=== PATIENT | female | born 1940 | race Caucasian/White ===

== ENCOUNTER → 2022-03-09 | Outpatient (CLI) | payer MEDICARE ==
--- NOTE | 2022-03-09 10:57 | XR ---
EXAMINATION TYPE: XR Hip Complete RT DATE OF EXAM: 03/09/2022 COMPARISON: NONE HISTORY: Pain TECHNIQUE: 2 views submitted FINDINGS: A mild axial narrowing of the hip joint. There is calcification along the greater trochanter with spu r also noted. Vascular calcifications are seen with no acute fracture. No erosive changes and hypertr ophic changes lumbosacral junction. Mild diffuse osteopenia. IMPRESSION: 1. Arthropathy correlates with femoral acetabular impingement. 2. Greater trochanter spur with soft tissue calcification can be associated with trochanteric bursiti s. Correlate clinically.
== END | disposition home or self-care (01) ==
LOC: RADXRYALE 09:45
PROVIDERS: ATTEND Physician Assistant
DX: M25.551 Pain in right hip (principal)
CPT/HCPCS: 73502

== ENCOUNTER 2024-05-04 08:23 | Inpatient (IN) | payer MEDICARE ==
[2024-05-04 08:36] VITALS: TEMP 98.1
--- NOTE | 2024-05-04 08:52 | ED ---
General Adult HPI - General Chief complaint: Chest Pain Stated complaint: Afib Time Seen by Provider: 05/04/24 08:24 Source: patient, EMS, RN notes reviewed, old records reviewed Mode of arrival: EMS Limitations: no limitations - History of Present Illness Initial comments: 84-year-old female history of atrial fibrillation presenting with rapid heartbea t and chest pressure. Patient states her watch did indicate that she was in a rapid atrial fibrillation. Patient was previously on 240 mg of Cardizem and this was reduced due to blood pressure issues several months ago. Patient denies focal numbness or weakness but her son did indicate that she had some mild slurring of her speech. Patient indicates that this is due to dry mouth from her CPAP machine. She is uncertain when this would have started. - Related Data Allergies Allergy/AdvReac Type Severity Reaction Status Date / Time clindamycin Allergy Rash/Hives Verified 05/04/24 08:37 iron Allergy Rash/Hives Verified 05/04/24 08:37 Sulfa (Sulfonamide Allergy Rash/Hives Verified 05/04/24 08:37 Antibiotics) Review of Systems ROS Statement: Those systems with pertinent positive or pertinent negative responses have been documented in the HPI. ROS Other: All systems not noted in ROS Statement are negative. Past Medical History Past Medical History: Atrial Fibrillation, CVA/TIA History of Any Multi-Drug Resistant Organisms: None Reported Additional Past Surgical History / Comment(s): watchmen Past Psychological History: No Psychological Hx Reported Smoking Status: Former smoker Past Alcohol Use History: None Reported Past Drug Use History: None Reported General Exam Limitations: no limitations General appearance: alert, in no apparent distress Head exam: Present: atraumatic, normocephalic Eye exam: Present: normal appearance, PERRL ENT exam: Present: normal exam Neck exam: Present: normal inspection. Absent: tenderness, meningismus Respiratory exam: Present: normal lung sounds bilaterally. Absent: respiratory distress, wheezes Cardiovascular Exam: Present: tachycardia, irregular rhythm GI/Abdominal exam: Present: soft. Absent: distended, tenderness, guarding Neurological exam: Present: alert, oriented X3, motor sensory deficit (Very mild dysarthria no aphasia) Psychiatric exam: Present: normal affect, normal mood Skin exam: Present: warm, dry, intact Course Vital Signs 05/04/24 05/04/24 08:26 09:20 Temperature 98.1 F Pulse Rate 115 H 144 H Respiratory 20 20 Rate Blood Pressure 140/104 133/117 O2 Sat by Pulse 95 96 Oximetry Medical Decision Making - Medical Decision Making Was pt. sent in by a medical professional or institution (DORINDA Martinez, PSYCHOLOGY TEACHER, urgent care, hospital, or fpc...) When possible be specific @ -No Did you speak to anyone other than the patient for history (EMS, parent, family, police, friend...)? What history was obtained from this source @ -No Did you review nursing and triage notes (agree or disagree)? Why? @ -I reviewed and agree with nursing and triage notes Were old charts reviewed (outside hosp., previous admission, EMS record, old EKG, old radiological studies, urgent care reports/EKG's, fpc records)? Report findings @ -No old charts were reviewed Differential Palpitations Ventricular arrhythmias, atrial arrhythmias, myocardial infarction, anemia, th yrotoxicosis, electrolyte imbalance, hypokalemia, pulmonary embolism, pulmonary disease, drugs, alcohol, anxiety, stress.... This is not meant to be an all-inclusive list. EKG interpreted by me (3pts min.). @Atrial fibrillation with RVR rate of 142, QRS duration 132, QTc [address] segment elevation X-rays interpreted by me (1pt min.). @ -[Chest x-ray, negative for acute cardiopulmonary findings CT interpreted by me (1pt min.). @CT brain negative for intracranial hemorrhage or mass effect U/S interpreted by me (1pt. min.). @ -None done What testing was considered but not performed or refused? (CT, X-rays, U/S, labs)? Why? @ -None What meds were considered but not given or refused? Why? @ -None Did you discuss the management of the patient with other professionals (professionals i.e. DORINDA Martinez, PSYCHOLOGY TEACHER, lab, RT, psych nurse, director social welfare, sighter, teacher, bank compliance officer, case assembler)? Give summary @Case discussed with Dr. Greenfield, will admit Was smoking cessation discussed for >3mins.? @ -No Was critical care preformed (if so, how long)? @ -[Yes, 35 minutes Were there social determinants of health that impacted care today? How? (Homelessness, low income, unemployed, alcoholism, drug addiction, transportation, low edu. Level, literacy, decrease access to med. care, fpc, rehab)? @ -No Was there de-escalation of care discussed even if they declined (Discuss DNR or withdrawal of care, Hospice)? DNR status @ -No What co-morbidities impacted this encounter? (DM, HTN, Smoking, COPD, CAD, Cancer, CVA, ARF, Chemo, Hep., AIDS, mental health diagnosis, sleep apnea, morbid obesity)? @ -Atrial fibrillation Was patient admitted / discharged? Hospital course, mention meds given and route, prescriptions, significant lab abnormalities, going to OR and other pertinent info. @ -84-year-old female with palpitations, chest tightness, patient noted to be in atrial fibrillation with rapid ventricular response rate around 150. Patient started on IV Cardizem. She does have normal laboratory test including normal CBC, normal CMP, negative initial troponin. Chest x-ray is clear. I did perform head CT as there was some concern over mild slurred speech, onset unknown. The patient herself believes this is due to dry mouth from her CPAP. It does improve with oral hydration. Head CT is negative. Patient is anticoagulated at baseline. Admitted for atrial fibrillation with RVR. Undiagnosed new problem with uncertain prognosis? @ -No Drug Therapy requiring intensive monitoring for toxicity (Heparin, Nitro, Insulin, Cardizem)? @ -No Were any procedures done? @ -No Diagnosis/symptom? @ -Atrial fibrillation with RVR] Acute, or Chronic, or Acute on Chronic? @ -Acute Uncomplicated (without systemic symptoms) or Complicated (systemic symptoms)? @ -Default Side effects of treatment? @ -No Exacerbation, Progression, or Severe Exacerbation? @ -No Poses a threat to life or bodily function? How? (Chest pain, [place], [place], pneumonia, PE, COPD, DKA, ARF, appy, cholecystitis, CVA, Diverticulitis, Homicidal, Suicidal, threat to staff... and all critical care pts) @ -Yes, arrhythmia, ACS - Lab Data Result diagrams: 05/04/24 08:47 05/04/24 08:47 Lab Results 05/04/24 05/04/24 05/04/24 Range/Units 08:47 08:47 08:47 WBC 4.2 (3.8-10.6) k/uL RBC 4.82 (3.80-5.40) m/uL Hgb 15.2 (11.4-16.0) gm/dL Hct 45.3 (34.0-46.0) % MCV 93.9 (80.0-100.0) fL MCH 31.5 (25.0-35.0) pg MCHC 33.6 (31.0-37.0) g/dL RDW 13.9 (11.5-15.5) % Plt Count 141 L (150-450) k/uL MPV 8.3 Neutrophils % 64 % Lymphocytes % 24 % Monocytes % 6 % Eosinophils % 3 % Basophils % 1 % Neutrophils # 2.7 (1.3-7.7) k/uL Lymphocytes # 1.0 (1.0-4.8) k/uL Monocytes # 0.2 (0-1.0) k/uL Eosinophils # 0.1 (0-0.7) k/uL Basophils # 0.0 (0-0.2) k/uL PT 11.0 (10.0-12.5) sec INR 1.0 (<1.2) APTT 25.7 (22.0-30.0) sec Sodium 144 (137-145) mmol/L Potassium 4.0 (3.5-5.1) mmol/L Chloride 114 H (98-107) mmol/L Carbon Dioxide 21 L (22-30) mmol/L Anion Gap 9 mmol/L BUN 16 (7-17) mg/dL Creatinine 0.87 (0.52-1.04) mg/dL Est GFR (CKD-EPI)AfAm 72 (>60 ml/min/1.73 sqM) Est GFR (CKD-EPI)NonAf 62 (>60 ml/min/1.73 sqM) Glucose 102 H (74-99) mg/dL Calcium 9.5 (8.4-10.2) mg/dL Magnesium 1.9 (1.6-2.3) mg/dL Total Bilirubin 1.0 (0.2-1.3) mg/dL AST 29 (14-36) U/L ALT 20 (4-34) U/L Alkaline Phosphatase 81 (38-126) U/L Troponin I (0.000-0.034) ng/mL Total Protein 6.8 (6.3-8.2) g/dL Albumin 4.2 (3.5-5.0) g/dL Urine Color Urine Appearance (Clear) Urine pH (5.0-8.0) Ur Specific [place] (1.001-1.035) Urine Protein (Negative) Urine Glucose (UA) (Negative) Urine Ketones (Negative) Urine Blood (Negative) Urine Nitrite (Negative) Urine Bilirubin (Negative) Urine Urobilinogen (<2.0) mg/dL Ur Leukocyte Esterase (Negative) 05/04/24 05/04/24 Range/Units 08:47 08:47 WBC (3.8-10.6) k/uL RBC (3.80-5.40) m/uL Hgb (11.4-16.0) gm/dL Hct (34.0-46.0) % MCV (80.0-100.0) fL MCH (25.0-35.0) pg MCHC (31.0-37.0) g/dL RDW (11.5-15.5) % Plt Count (150-450) k/uL MPV Neutrophils % % Lymphocytes % % Monocytes % % Eosinophils % % Basophils % % Neutrophils # (1.3-7.7) k/uL Lymphocytes # (1.0-4.8) k/uL Monocytes # (0-1.0) k/uL Eosinophils # (0-0.7) k/uL Basophils # (0-0.2) k/uL PT (10.0-12.5) sec INR (<1.2) APTT (22.0-30.0) sec Sodium (137-145) mmol/L Potassium (3.5-5.1) mmol/L Chloride (98-107) mmol/L Carbon Dioxide (22-30) mmol/L Anion Gap mmol/L BUN (7-17) mg/dL Creatinine (0.52-1.04) mg/dL Est GFR (CKD-EPI)AfAm (>60 ml/min/1.73 sqM) Est GFR (CKD-EPI)NonAf (>60 ml/min/1.73 sqM) Glucose (74-99) mg/dL Calcium (8.4-10.2) mg/dL Magnesium (1.6-2.3) mg/dL Total Bilirubin (0.2-1.3) mg/dL AST (14-36) U/L ALT (4-34) U/L Alkaline Phosphatase (38-126) U/L Troponin I <0.012 (0.000-0.034) ng/mL Total Protein (6.3-8.2) g/dL Albumin (3.5-5.0) g/dL Urine Color Colorless Urine Appearance CLR (Clear) Urine pH 6.5 (5.0-8.0) Ur Specific [place] 1.005 (1.001-1.035) Urine Protein Negative (Negative) Urine Glucose (UA) Negative (Negative) Urine Ketones Negative (Negative) Urine Blood Trace (Negative) Urine Nitrite Negative (Negative) Urine Bilirubin Negative (Negative) Urine Urobilinogen <2.0 (<2.0) mg/dL Ur Leukocyte Esterase Negative (Negative) Critical Care Time Critical Care Time: Yes Total Critical Care Time: 35 Disposition Clinical Impression: Atrial fibrillation with RVR Disposition: ADMITTED IP TO THIS HOSP Condition: Stable Is patient prescribed a controlled substance at d/c from ED?: No Referrals: Carmine Adrian DO [Primary Care Provider] - 1-2 days Time of Disposition: 09:40
[2024-05-04 09:01] LABS: Basophils % (A) 1 %; Eosinophils # (A) 0.1 k/uL (0-0.7); Eosinophils % (A) 3 %; HCT 45.3 % (34.0-46.0); HGB 15.2 gm/dL (11.4-16.0); Lymphocytes % (A) 24 %; MCH 31.5 pg (25.0-35.0); MCHC 33.6 g/dL (31.0-37.0); MCV 93.9 fL (80.0-100.0); Mean Platelet Volume 8.3; Monocytes # (A) 0.2 k/uL (0-1.0); Monocytes % (A) 6 %; Neutrophils # (A) 2.7 k/uL (1.3-7.7); Neutrophils % (A) 64 %; Platelet Count 141 k/uL (150-450); RBC 4.82 m/uL (3.80-5.40); RDW 13.9 % (11.5-15.5); WBC 4.2 k/uL (3.8-10.6)
[2024-05-04 09:07] LABS: Appearance,Urine CLR (Clear); Color,Urine Colorless; Glucose,Urine (UA) Negative (Negative); PH, Urine 6.5 (5.0-8.0); Protein,Urine Negative (Negative); Specific Gravity,Urine 1.005 (1.001-1.035)
[2024-05-04 09:08] LABS: Bilirubin,Urine Negative (Negative); Blood,Urine Trace (Negative); Ketones,Urine Negative (Negative); Leukocyte Esterase,Urine Negative (Negative); Nitrite,Urine Negative (Negative); Urobilinogen,Urine <2.0 mg/dL (<2.0)
[2024-05-04 09:09] LABS: Partial Thromboplastin Time 25.7 sec (22.0-30.0)
--- NOTE | 2024-05-04 09:11 | XR ---
EXAMINATION TYPE: XR chest 2V DATE OF EXAM: 05/04/2024 COMPARISON: NONE HISTORY: Shortness of breath TECHNIQUE: Frontal and lateral views of the chest are obtained. FINDINGS: Scattered senescent parenchymal changes noted. No evidence for infiltrate. No evidence for atelectasis. Heart size is stable. Pulmonary venous congestion without overt failure. Mediastinal structures are stable and grossly unremarkable. No evidence for hilar prominence. Degenerative changes dorsal spine. IMPRESSION: 1. No evidence for acute pulmonary disease. [facility], , 05/04/2024 9:09 AM
[2024-05-04 09:16] LABS: ALT 20 U/L (4-34); AST 29 U/L (14-36); African American GFR (CKD) 72 (>60 ml/min/1.73 sqM); Albumin 4.2 g/dL (3.5-5.0); Alkaline Phosphatase 81 U/L (38-126); Anion Gap 9 mmol/L; Blood Urea Nitrogen 16 mg/dL (7-17); Calcium 9.5 mg/dL (8.4-10.2); Carbon Dioxide 21 mmol/L (22-30); Chloride 114 mmol/L (98-107); Glucose 102 mg/dL (74-99); Magnesium 1.9 mg/dL (1.6-2.3); Non-African American GFR(CKD) 62 (>60 ml/min/1.73 sqM); Sodium 144 mmol/L (137-145); Total Protein 6.8 g/dL (6.3-8.2)
--- NOTE | 2024-05-04 09:19 | CT ---
EXAMINATION TYPE: CT brain wo con DATE OF EXAM: 05/04/2024 COMPARISON: None HISTORY: Slurred speech, afib CT DLP: 1156.[address] of the brain was performed. The ventricles, basal cisterns and sulci overlying the cerebral convexities demonstrate mild enlargem ent. There is no evidence for intracranial hemorrhage or sulcal effacement. There is decreased attenuation about the periventricular white matter and deep white matter of both c erebral hemispheres, compatible with chronic small vessel ischemia. Differential diagnosis does inclu de demyelination. No mass effects are seen.No midline shift. Osseous calvarium is intact. If symptoms persist consider MRI. IMPRESSION: 1. Age related atrophic and chronic small vessel ischemic change without acute intracranial process s een at this time. [facility], , 05/04/2024 9:17 AM
[2024-05-04] MEDS: DILTIAZEM 125 MG in SODIUM CHLORIDE 0.9% 100 ML IV SCH (09:24)
[2024-05-04] MEDS: DILTIAZEM DRIP BOLUS FROM BAG 1 MG SOLN IV ONE (09:24)
[2024-05-04] MEDS ORDERED: NALOXONE 0.4 MG/ML 1 ML VIAL IV PRN (09:36)
[2024-05-04] MEDS ORDERED: ACETAMINOPHEN TAB 325 MG TAB PO PRN (09:36)
[2024-05-04] MEDS: SODIUM CHLORIDE 0.9% 1,000 ML IV SCH (10:17)
--- NOTE | 2024-05-04 17:32 | P.HPIM ---
History of Present Illness H&P Date: 05/04/24 84 year old F with PMH of CVA, AFib, HTN, Scleroderma presents to the ED. She reports waking up this morning and experienced chest tightness. She noted her HR to be as high as 150 which prompted her to come to the ED. She reports recently admitted at [facility] from 01/17-01/21 for similar complaints. She underwent cardioversion at that time and discharged on Cardizem. Her PCP noted her BP to be low and cut the dose in half (120 mg PO QD). In the ED she underwent extensive evaluation. BP 140/104, HR 115, T 98.1F, RR 20, 95% on RA. CBC, Coag panel, CMP significant for Plt 141, Cl 114, bicarb 21, glu 102. Mag 1.9. TSH 2.24. Trop < 0.012, 0.029, 0.067. UA negative. EKG A-Fib with RVR. CXR and brain CT negative. Patient is started on Cardizem drip and admitted for further workup and management. General: non toxic, no distress, appears at stated age Derm: warm, dry Head: atraumatic, normocephalic, symmetric Eyes: EOMI, no lid lag, anicteric sclera Mouth: no lip lesion, mucus membranes moist Cardiovascular: S1S2 irreg, no murmur Lungs: Clear to auscultation bilateral, no rhonchi, no rales, no accessory muscle use Ext: no gross muscle atrophy, no edema, no contractures Neuro: no focal neuro deficits Psych: Alert, oriented, appropriate affect Based on my assessment of this patient, this patient meets a high complexity level of care. Atrial fibrillation with RVR: Cardizem at 5 mg/hr and titrate. Restart Eliquis 5 mg PO BID. Start Metoprolol 25 mg PO BID. Telemetry monitoring. Echo ordered. Cardiology consulted. Elevated Troponin likely Type II NSTEMI: Trend Troponin to rule out ACS. Echo as above. ASA 81 mg PO QD. Lipitor 40 mg PO QHS. Metoprolol as above. History of CVA: ASA and Lipitor as above. HTN: Losartan 50 mg PO QD. Metoprolol as above. Scleroderma: Plaquenil 200 mg PO QD. CODE STATUS: NO CODE but OK with intubation and cardioversion. DVT Prophylaxis: Eliquis GI Prophylaxis: Designated medical POA if patient is not able to make medical decisions for themselves: I have reviewed the following residential property consultant notes: ED note. I have reviewed the results of the following tests: As above. I have ordered the following tests: As above. I have discussed the care of this patient with the following independent historian: Daughter I have independently interpreted the following test below: Past Medical History Past Medical History: Atrial Fibrillation, CVA/TIA History of Any Multi-Drug Resistant Organisms: None Reported Additional Past Surgical History / Comment(s): watchmen Past Psychological History: No Psychological Hx Reported Smoking Status: Former smoker Past Alcohol Use History: None Reported Past Drug Use History: None Reported Medications and Allergies Home Medications Medication Instructions Recorded Confirmed Type Apixaban [Eliquis] 5 mg PO BID 05/04/24 05/04/24 History Aspirin EC [Ecotrin Low Dose] 81 mg PO DAILY 05/04/24 05/04/24 History Atorvastatin [Lipitor] 40 mg PO HS 05/04/24 05/04/24 History Hydroxychloroquine Sulfate 200 mg PO DAILY 05/04/24 05/04/24 History [Plaquenil] Losartan [Cozaar] 50 mg PO DAILY 05/04/24 05/04/24 History dilTIAZem HCL [Cardizem CD] 120 mg PO HS 05/04/24 05/04/24 History Allergies Allergy/AdvReac Type Severity Reaction Status Date / Time clindamycin Allergy Rash/Hives Verified 05/04/24 10:14 iron Allergy Rash/Hives Verified 05/04/24 10:14 Sulfa (Sulfonamide Allergy Rash/Hives Verified 05/04/24 10:14 Antibiotics) Physical Exam Vitals: Vital Signs Temp Pulse Resp BP Pulse Ox 05/04/24 14:00 118 H 16 132/81 97 05/04/24 13:00 116 H 18 138/78 96 05/04/24 12:00 135 H 20 149/97 96 05/04/24 10:33 144 H 20 130/87 94 L 05/04/24 09:20 144 H 20 133/117 96 05/04/24 08:26 98.1 F 115 H 20 140/104 95 Intake and Output 05/04/24 05/04/24 05/04/24 06:59 14:59 22:59 Output Total 820 Balance -820 Output: Urine 820 Other: Weight 95.254 kg Results CBC & Chem 7: 05/04/24 08:47 05/04/24 08:47 Labs: Abnormal Lab Results - Last 24 Hours (Table) 05/04/24 05/04/24 05/04/24 Range/Units 08:47 08:47 14:39 Plt Count 141 L (150-450) k/uL Chloride 114 H (98-107) mmol/L Carbon Dioxide 21 L (22-30) mmol/L Glucose 102 H (74-99) mg/dL Troponin I 0.067 H* (0.000-0.034) ng/mL
[2024-05-04] MEDS: APIXABAN 5 MG TAB PO SCH (20:19)
[2024-05-04] MEDS: ATORVASTATIN 40 MG TAB PO SCH (20:19)
[2024-05-04] MEDS: METOPROLOL TARTRATE 25 MG TAB PO SCH (20:19)
[2024-05-04] MEDS ORDERED: DILTIAZEM CD 120 MG CAP.ER.24H PO SCH (21:00)
[2024-05-04] MEDS ORDERED: METOPROLOL TARTRATE 25 MG TAB PO SCH (21:00)
[2024-05-05] MEDS: HYDROXYCHLOROQUINE SULFATE 200 MG TAB PO SCH (08:52)
[2024-05-05] MEDS: ASPIRIN 81 MG PO SCH (08:53)
[2024-05-05] MEDS: LOSARTAN 50 MG TAB PO SCH (08:57)
[2024-05-05] MEDS: DILTIAZEM CD 120 MG CAP.ER.24H PO SCH (08:57)
[2024-05-05 09:00] VITALS: RESP 18
--- NOTE | 2024-05-05 10:31 | CA ---
Transthoracic Echo Report Name: Marsha Wu Age: 84 Gender: F : 1940 Exam Date: 05/05/2024 08:10 Exam Location: [place] [facility] Ht (in): 65 Wt (lb): 210 Ordering Physician: Wily Miles MD Attending/Referring Phys: Fur Designer Rajwinder Rene RDCS Procedure CPT: Indications: afib Cardiac Hx: Technical Quality: Fair Contrast 1: Total Dose (mL): Contrast 2: Total Dose (mL): MEASUREMENTS (Male / Female) Normal Values 2D ECHO LV Diastolic Diameter PLAX 4.5 cm 4.2 - 5.9 / 3.9 - 5.3 cm LV Systolic Diameter PLAX 3.3 cm IVS Diastolic Thickness 1.6 cm 0.6 - 1.0 / 0.6 - 0.9 cm LVPW Diastolic Thickness 1.6 cm 0.6 - 1.0 / 0.6 - 0.9 cm LV Relative Wall Thickness 0.7 RV Internal Dim ED PLAX 3.2 cm LVOT Diameter 2.0 cm LA Volume 129.2 cm??? 18 - 58 / 22 - 52 cm??? LA Volume Index 60.7 cm???/m??? 16 - 28 cm???/m??? M-MODE Aortic Root Diameter MM 2.9 cm LA Systolic Diameter MM 3.9 cm LA Ao Ratio MM 1.3 AV Cusp Separation MM 1.8 cm DOPPLER AV Peak Velocity 150.3 cm/s AV Peak Gradient 9.0 mmHg AV Mean Velocity 107.7 cm/s AV Mean Gradient 5.1 mmHg AV Velocity Time Integral 32.8 cm LVOT Peak Velocity 105.4 cm/s LVOT Peak Gradient 4.4 mmHg LVOT Velocity Time Integral 27.4 cm LVOT Stroke Volume 90.0 cm??? LVOT Stroke Volume Index 44.6 ml/m??? LVOT Cardiac Index 2748.0 cm???/min???m??? AV Area Cont Eq vti 2.7 cm??? AV Area Cont Eq pk 2.3 cm??? MV Area PHT 3.0 cm??? Mitral E Point Velocity 127.7 cm/s Mitral A Point Velocity 100.0 cm/s Mitral E to A Ratio 1.3 MV Deceleration Time 250.9 ms MV E' Velocity 5.8 cm/s Mitral E to MV E' Ratio 22.1 TR Peak Velocity 273.7 cm/s TR Peak Gradient 30.0 mmHg Right Ventricular Systolic Press 34.7 mmHg FINDINGS Left Ventricle Moderately increased left ventricular wall thickness. Left ventricular cavity size normal. Normal left ventricular systolic function with no obvious regional wall motion abnormalities. Left ventricular ejection fraction is estimated at 55-60 %. Grade 2 diastolic dysfunction. Right Ventricle Normal right ventricular size and function. Mild pulmonary hypertension. Right Atrium Normal right atrial size. Left Atrium Severely increased left atrial volume. Moderately increased left atrial area. Mitral Valve Structurally normal mitral valve. Mitral valve thickened. Moderate mitral annular calcification. Mild to moderate mitral regurgitation. Aortic Valve Trileaflet aortic valve. No aortic valve stenosis or regurgitation. Aortic valve sclerosis. Tricuspid Valve Structurally normal tricuspid valve. Mild tricuspid regurgitation. Pulmonic Valve Structurally normal pulmonic valve. Trace pulmonic regurgitation. Pericardium No pericardial effusion. Aorta Normal size aortic root and proximal ascending aorta. CONCLUSIONS Normal LV size and systolic function. There is mild mitral annular calcification and aortic valve sclerosis without restriction. There is mild to moderate mitral regurgitation. Mild tricuspid regurgitation no pericardial effusion no significant pulmonary hypertension Previewed by: Dr. Franco Parks MD (Electronically Signed) Final Date: 05 May 2024 10:30
--- NOTE | 2024-05-05 10:43 | P.CRDCN ---
History of Present Illness Consult date: 05/05/24 Reason for Consult (text): A-fib with RVR History of present illness: This is an 84-year-old female with past medical history of CVA, atrial fi brillation status post Watchman procedure, remote history of tobacco use. We have been asked to evaluate the patient for A-fib with RVR. Patient follows with a particle board supervisor out of [place] at the [place] office. This is her second episode of atrial fibrillation. She states she had 1 episode in January and underwent cardioversion at that time. She was on Cardizem at 240 mg but this was too strong for her and she has been maintained on 120 mg as well as on Eliquis. It appears patient was not on a beta-gildardo because she has bradycardia. She states she did have Watchman procedure done in 2014 in [place] and there is a leak with this and she is on Eliquis. She has history of CVA x 2 in 2021. Patient states that she woke up yesterday morning with heaviness in her chest and her watch said that her heart rate was 150 mg. She states she had a heaviness in her chest but no chest pain. Patient was started on Cardizem drip which has been placed on hold because patient converted to sinus rhythm this morning. Discussed treatment options with the patient and she is not a candidate for Multaq, sotalol, amiodarone due to the use of Plaquenil which can cause QT prolongation. Patient is on Plaquenil for scleroderma which seems to be managing her symptoms well. Discussed the next option would be to continue her current medications, follow-up with her particle board supervisor and discuss ablation. Blood pressure 153/74, heart rate 72, pulse ox 90% on room air. Patient denies having any heaviness in her chest or palpitations at this time. EKG: Atrial fibrillation with ventricular rate of 142 bpm, #2 sinus rhythm T wave inversions in V2 through V4 Chest x-ray: No acute process CT brain: Age-related atrophy and chronic small vessel ischemic change without acute intracranial process. Laboratory studies: WBC 4.2, hemoglobin 15.2. Platelet count 141. Sodium 144, potassium 4, BUN 16 creatinine 0.87. Troponin negative x 2. Magnesium 1.9. TSH 2.24. Urinalysis negative for infection. Home cardiac medications: Eliquis 5 mg twice daily, aspirin 81 mg daily, atorvastatin 40 mg at bedtime, Cardizem CD 120 mg at bedtime, Plaquenil 200 mg daily, losartan 50 mg daily. Echocardiogram reveals normal LV size and systolic function, mild mitral annular calcification and aortic valve sclerosis without restriction. Mild to moderate mitral regurgitation. Mild tricuspid regurgitation. No pericardial effusion. No significant pulmonary hypertension. Review Of Systems: At the time of my exam: CONSTITUTIONAL: Denies fever or chills. HEENT: Denies blurred vision, vision changes, or eye pain. Denies hemoptysis CARDIOVASCULAR: Denies chest pain. Denies orthopnea. Denies PND. Denies palpitations RESPIRATORY: Denies shortness of breath. GASTROINTESTINAL: Denies abdominal pain. Denies nausea or vomiting. HEMATOLOGIC: Denies bleeding disorders. GENITOURINARY: Denies any blood in urine. SKIN: Denies puritis. Denies rash. Physical examination: Gen: This is an 84-year-old female in no acute distress VS: reviewed HEENT: Head is atraumatic, normocephalic. Pupils equal, round. Sclerae is anicteric. NECK: Supple. No JVD. LUNGS: Clear to auscultation. No wheezes or rhonchi. No intercostal retractions. HEART: Regular rate and rhythm. No murmur. ABDOMEN: Soft No tenderness. EXTREMITIES: No pedal edema. No calf tenderness. NEUROLOGICAL: Patient is awake, alert and oriented x3. Assessment: Paroxysmal atrial fibrillation with RVR, converted to sinus rhythm CVA x 2 Hypertension Hyperlipidemia History of Watchman procedure Scleroderma on Plaquenil Plan: Continue patient on her home cardiac medications Discontinue Cardizem drip, discontinue beta-gildardo Discontinue IV fluids Patient is cleared for discharge from cardiology May follow-up with her particle board supervisor in the next week. Thank you kindly for this consultation. Nurse practitioner note has been reviewed, I agree with documented findings and plan of care. Patient was seen and examined. Past Medical History Past Medical History: Atrial Fibrillation, CVA/TIA History of Any Multi-Drug Resistant Organisms: None Reported Additional Past Surgical History / Comment(s): watchmen Past Psychological History: No Psychological Hx Reported Smoking Status: Former smoker Past Alcohol Use History: None Reported Past Drug Use History: None Reported Medications and Allergies Home Medications Medication Instructions Recorded Confirmed Type Apixaban [Eliquis] 5 mg PO BID 05/04/24 05/04/24 History Aspirin EC [Ecotrin Low Dose] 81 mg PO DAILY 05/04/24 05/04/24 History Atorvastatin [Lipitor] 40 mg PO HS 05/04/24 05/04/24 History Hydroxychloroquine Sulfate 200 mg PO DAILY 05/04/24 05/04/24 History [Plaquenil] Losartan [Cozaar] 50 mg PO DAILY 05/04/24 05/04/24 History dilTIAZem HCL [Cardizem CD] 120 mg PO HS 05/04/24 05/04/24 History Allergies Allergy/AdvReac Type Severity Reaction Status Date / Time clindamycin Allergy Rash/Hives Verified 05/04/24 10:14 iron Allergy Rash/Hives Verified 05/04/24 10:14 Sulfa (Sulfonamide Allergy Rash/Hives Verified 05/04/24 10:14 Antibiotics) Physical Exam Vitals: Vital Signs Temp Pulse Resp BP Pulse Ox 05/04/24 12:00 135 H 20 149/97 96 05/04/24 10:33 144 H 20 130/87 94 L 05/04/24 09:20 144 H 20 133/117 96 05/04/24 08:26 98.1 F 115 H 20 140/104 95 Intake and Output 05/03/24 05/04/24 05/04/24 22:59 06:59 14:59 Output Total 820 Balance -820 Output: Urine 820 Other: Weight 95.254 kg Results 05/04/24 08:47 05/04/24 08:47 Cardiac Enzymes 05/04/24 05/04/24 05/04/24 Range/Units 08:47 08:47 11:14 AST 29 (14-36) U/L Troponin I <0.012 0.029 (0.000-0.034) ng/mL Coagulation 05/04/24 Range/Units 08:47 PT 11.0 (10.0-12.5) sec APTT 25.7 (22.0-30.0) sec CBC 05/04/24 Range/Units 08:47 WBC 4.2 (3.8-10.6) k/uL RBC 4.82 (3.80-5.40) m/uL Hgb 15.2 (11.4-16.0) gm/dL Hct 45.3 (34.0-46.0) % Plt Count 141 L (150-450) k/uL Comprehensive Metabolic Panel 05/04/24 Range/Units 08:47 Sodium 144 (137-145) mmol/L Potassium 4.0 (3.5-5.1) mmol/L Chloride 114 H (98-107) mmol/L Carbon Dioxide 21 L (22-30) mmol/L BUN 16 (7-17) mg/dL Creatinine 0.87 (0.52-1.04) mg/dL Glucose 102 H (74-99) mg/dL Calcium 9.5 (8.4-10.2) mg/dL AST 29 (14-36) U/L ALT 20 (4-34) U/L Alkaline Phosphatase 81 (38-126) U/L Total Protein 6.8 (6.3-8.2) g/dL Albumin 4.2 (3.5-5.0) g/dL Current Medications Generic Name Dose Route Start Last Admin Trade Name Freq PRN Reason Stop Dose Admin Acetaminophen 650 mg 05/04/24 09:36 Acetaminophen Tab 325 Mg Tab PO Q6HR PRN Mild Pain or Fever > 100.5 Diltiazem HCl 125 mg/ Sodium 125 mls @ 5 mls/hr 05/04/24 08:45 05/04/24 09:24 Chloride IV 5 mg/hr .Q24H ALAN 5 mls/hr Administration 5 MG/HR Sodium Chloride 1,000 mls @ 75 mls/hr 05/04/24 09:45 05/04/24 10:17 Saline 0.9% IV 75 mls/hr .[id number] ALAN Administration Naloxone HCl 0.2 mg 05/04/24 09:36 Naloxone 0.4 Mg/Ml 1 Ml Vial IV Q2M PRN Opioid Reversal Intake and Output 05/03/24 05/04/24 05/04/24 22:59 06:59 14:59 Output Total 820 Balance -820 Output: Urine 820 Other: Weight 95.254 kg Patient Weight 05/05/24 06:59 Weight 95.254 kg 05/04/24 08:47 05/04/24 08:47
--- NOTE | 2024-05-05 12:17 | P.DS ---
Providers Date of admission: 05/04/24 09:47 Expected date of discharge: 05/05/24 Attending physician: Cecilio Greenfield Consults: 05/04/24 09:36 Consult Physician Routine Consulting Provider: Lalit Mcnair Consult Reason/Comments: A-fib RVR Do you want consulting provider notified?: Yes Primary care physician: [facility] Course: 84 year old F with PMH of CVA, AFib, HTN, Scleroderma presents to the ED. She reports waking up this morning and experienced chest tightness. She noted her HR to be as high as 150 which prompted her to come to the ED. She reports recently admitted at [facility] [place] from 01/17-01/21 for similar complaints. She underwent cardioversion at that time and discharged on Cardizem. Her PCP noted her BP to be low and cut the dose in half (120 mg PO QD). In the ED she underwent extensive evaluation. BP 140/104, HR 115, T 98.1F, RR 20, 95% on RA. CBC, Coag panel, CMP significant for Plt 141, Cl 114, bicarb 21, glu 102. Mag 1.9. TSH 2.24. Trop < 0.012, 0.029, 0.067. UA negative. EKG A-Fib with RVR. CXR and brain CT negative. Patient is started on Cardizem drip and admitted for further workup and management. Converted to sinus rhythm. Cardiology consulted, restarted on Cardizem PO. Troponin uptrending to 0.029, 0.067, 0.08. Echo showed EF 55-60% with G2DD. Discussed with Alida BORJAS, cardiology cleared the patient for discharge for outpatient evaluation for possible ablation. 05/05 Patient was seen and examined. No chest pain. No complaints. Feeling well. General: non toxic, no distress, appears at stated age Derm: warm, dry Head: atraumatic, normocephalic, symmetric Eyes: EOMI, no lid lag, anicteric sclera Mouth: no lip lesion, mucus membranes moist Cardiovascular: S1S2 irreg, no murmur Lungs: Clear to auscultation bilateral, no rhonchi, no rales, no accessory muscle use Ext: no gross muscle atrophy, no edema, no contractures Neuro: no focal neuro deficits Psych: Alert, oriented, appropriate affect Discharge Diagnosis: Atrial fibrillation with RVR Elevated Troponin likely demand ischemia from above History of CVA HTN Scleroderma This complex discharge took 35 minutes to complete. Patient Condition at Discharge: Stable Plan - Discharge Summary New Discharge Prescriptions: New Diltiazem Cd [Cardizem CD] 120 mg PO DAILY cap Continue Aspirin EC [Ecotrin Low Dose] 81 mg PO DAILY Apixaban [Eliquis] 5 mg PO BID Hydroxychloroquine Sulfate [Plaquenil] 200 mg PO DAILY Losartan [Cozaar] 50 mg PO DAILY Atorvastatin [Lipitor] 40 mg PO HS Discontinued dilTIAZem HCL [Cardizem CD] 120 mg PO HS Discharge Medication List Apixaban [Eliquis] 5 mg PO BID 05/04/24 [History] Aspirin EC [Ecotrin Low Dose] 81 mg PO DAILY 05/04/24 [History] Atorvastatin [Lipitor] 40 mg PO HS 05/04/24 [History] Hydroxychloroquine Sulfate [Plaquenil] 200 mg PO DAILY 05/04/24 [History] Losartan [Cozaar] 50 mg PO DAILY 05/04/24 [History] Diltiazem Cd [Cardizem CD] 120 mg PO DAILY cap 05/05/24 [Rx] Follow up Appointment(s)/Referral(s): Lalit Mcnair MD [STAFF PHYSICIAN] - 1 Week Carmine Adrian DO [Primary Care Provider] - 1-2 days Discharge Disposition: HOME SELF-CARE
[2024-05-05 13:59] VITALS: BP 118/67; PULSE 75
== END 2024-05-05 14:41 | disposition home or self-care (01) | DRG 282 ==
LOC: EC 08:23 → EEVIPCON 08:23 → 3SCARD 09:47
PROVIDERS: ADMIT Student in an Organized Health Care Education/Training Program; ATTEND Student in an Organized Health Care Education/Training Program
DX: I48.0 Paroxysmal atrial fibrillation (principal); I21.A1 Myocardial infarction type 2; M34.9 Systemic sclerosis, unspecified; I10 Essential (primary) hypertension; R47.81 Slurred speech; I08.3 Combined rheumatic disorders of mitral, aortic and tricuspid valves; E78.5 Hyperlipidemia, unspecified; Z79.01 Long term (current) use of anticoagulants; Z79.82 Long term (current) use of aspirin; Z86.73 Personal history of transient ischemic attack (TIA), and cerebral infarction without residual deficits; Z87.891 Personal history of nicotine dependence; Z79.899 Other long term (current) drug therapy; Z95.818 Presence of other cardiac implants and grafts
CPT/HCPCS: 36415; 70450; 71046; 80053; 81001; 83735; 84443; 84484; 85025; 85610; 85730; 93005; 93306; 96365; 96366; 99291

== ENCOUNTER → 2024-11-02 | Outpatient (CLI) | payer MEDICARE ==
[2024-11-02 15:13] VITALS: BP 171/79; PULSE 64; RESP 16; TEMP 97.9
--- NOTE | 2024-11-02 15:53 | P.SLEEP ---
History of Present Illness DATE: 11/02/2024 CONSULTATION/NEW PATIENT EVALUATION HISTORY OF PRESENT ILLNESS/SLEEP-WAKE EVALUATION: 84-year-old lady had been e valuated in the sleep center for obstructive sleep apnea hypopnea syndrome. The obstructive sleep apnea hypopnea syndrome in another institution in 2013. Presently she does not use CPAP treatment SLEEP SCHEDULE: Usually sleep schedule from 89 PM to 6 AM. FALLING ASLEEP: Sometimes patient has difficulties to fall asleep. DURING SLEEP: Patient snores and has episodes of stop breathing during the sleep. Patient wakes up from sleep up to 4 times with nocturia even while she was on treatment with CPAP before. No history of hypnogogical hallucinations, sleep paralysis, or cataplexy. DURING THE DAY/WAKE STATE: In the morning patient wake up tired. [place] sleepiness scale is 5. Patient may take 1 nap at at 1 PM.[]. PAST MEDICAL HISTORY: Hypertension, hyperlipidemia history of strokes x 2 last in 2021, scleroderma, history of atrial fibrillation episodes. PAST SURGICAL HISTORY: Cholecystectomy, bilateral hip replacement, Watchman procedure. MEDICATIONS: Please see below. SOCIAL HISTORY: Please see below. FAMILY HISTORY: Please see below. REVIEW OF SYSTEMS: Snoring, multiple awakenings from sleep. No fevers. No double vision. No recent chest pain. No shortness of breath. No abdominal pain. No bleeding episodes. No blood in urine. No seizure episodes. PHYSICAL EXAMINATION: GENERAL: A pleasant patient without any distress. VITAL SIGNS:, Weight 220 pounds, BMI 36. HEENT: PERRLA, EOMI. Evaluation of oropharynx showed tongue protrudes midline, low position of soft palate Mallampati 3, short distance between soft palate and posterior pharyngeal wall. NECK: Supple. No JVD. Thyroid is not palpable. 18 inches in circumference. LUNGS: Clear to percussion and to auscultation. Good air exchange. No wheezing or rhonchi. HEART: S1, S2 regular. No murmurs, gallops or rubs. ABDOMEN: Soft and nontender. Bowel sounds are present. No organomegaly appreciated. EXTREMITIES: No clubbing or cyanosis. ELECTRON TUBE ASSEMBLER: Awake, alert, and oriented x3. Cranial nerves 2 to 7 intact. There is no fasciculation or atrophy noted. No focal deficits observed. ASSESSMENT: 1. Snoring, witnessed episodes of stop breathing during the sleep, history of obstructive sleep apnea hypopnea syndrome before, low position of soft palate Mallampati 3, wide neck 18 inches in circumference. Obstructive sleep apnea hypopnea syndrome. 2. Hypertension. 3. History of scleroderma. 4. History of strokes x 2, last episode in 2021. 5 history of atrial fibrillation episodes. 6 . Status post bilateral hip replacement. 7. Status post Watchman procedure. 8. Mild obesity, BMI 36 PLAN: 1. Polysomnography for evaluation of patient's breathing during sleep. 2. Following plan after reading sleep study. 3. Preferable position during sleep on the side. 4. No driving if patient feels any sleepiness. Patient is aware of civil and criminal liability for unsafe driving. 5. Sleep hygiene with regular sleep time for at least 7.5-8 hours. 6. Watching and losing weight. Thank you very much for referring this patient for consultation. Sincerely, Stanford Coffey MD, PhD, FAASM. Diplomat of [place] [employer], Sleep Medicine Board by [place] [employer] [place] [employer] Round Cutter Operator [facility] [place] cc: Carmine Adrian DO, Sophy Chu PA-C Past Medical History Past Medical History: Atrial Fibrillation, CVA/TIA, Hypertension, Sleep Apnea/CPAP/BIPAP Additional Past Medical History / Comment(s): snoring History of Any Multi-Drug Resistant Organisms: None Reported Additional Past Surgical History / Comment(s): watchmen Past Anesthesia/Blood Transfusion Reactions: No Reported Reaction Past Psychological History: No Psychological Hx Reported Smoking Status: Former smoker Past Alcohol Use History: None Reported Past Drug Use History: None Reported Medications and Allergies Home Medications Medication Instructions Recorded Confirmed Type Apixaban [Eliquis] 5 mg PO BID 05/04/24 11/02/24 History Aspirin EC [Ecotrin Low Dose] 81 mg PO DAILY 05/04/24 05/04/24 History Atorvastatin [Lipitor] 40 mg PO HS 05/04/24 11/02/24 History Hydroxychloroquine Sulfate 200 mg PO DAILY 05/04/24 11/02/24 History [Plaquenil] Losartan [Cozaar] 50 mg PO DAILY 05/04/24 11/02/24 History Diltiazem Cd [Cardizem CD] 120 mg PO DAILY cap 05/05/24 11/02/24 Rx Allergies Allergy/AdvReac Type Severity Reaction Status Date / Time clindamycin Allergy Rash/Hives Verified 05/04/24 10:14 iron Allergy Rash/Hives Verified 05/04/24 10:14 Sulfa (Sulfonamide Allergy Rash/Hives Verified 05/04/24 10:14 Antibiotics) Physical Exam Vitals: Vital Signs Temp Pulse Resp BP Pulse Ox 11/02/24 15:11 97.9 F 64 16 171/79 97 Intake and Output 11/02/24 11/02/24 11/02/24 06:59 14:59 22:59 Other: Weight 99.79 kg Sleep Note - Sleep Data ESS Total: 5 - Sleep Note Sleep Note: Temperature: 97.9 F Pulse Rate: 64 Respiratory Rate: 16 Blood Pressure: 171/79 SpO2: 97 Height: 5 ft 5.5 in Weight: 99.79 kg BMI: Neck Circumference: 15
== END ==
LOC: 3 N SLEEP 14:43
PROVIDERS: ATTEND Internal Medicine
DX: G47.33 Obstructive sleep apnea (adult) (pediatric) (principal); I10 Essential (primary) hypertension; E66.9 Obesity, unspecified; Z87.39 Personal history of other diseases of the musculoskeletal system and connective tissue; Z86.73 Personal history of transient ischemic attack (TIA), and cerebral infarction without residual deficits; Z86.79 Personal history of other diseases of the circulatory system; Z96.643 Presence of artificial hip joint, bilateral; Z68.36 Body mass index [BMI] 36.0-36.9, adult; Z98.890 Other specified postprocedural states; Z88.2 Allergy status to sulfonamides; Z91.048 Other nonmedicinal substance allergy status; Z88.1 Allergy status to other antibiotic agents
CPT/HCPCS: 99211

== ENCOUNTER 2024-12-21 19:36 | Outpatient (CLI) | payer MEDICARE ==
--- NOTE | 2024-12-27 18:08 | P.PCN ---
Description of Procedure: POLYSOMNOGRAPHY REPORT PROCEDURE(S)/DATE(S): Polysomnography 12/21/2024 CLINICAL: Patient has been seen in the sleep center for evaluation of obstructive sleep apnea-hypopnea syndrome. Please see my consultation. Sleep study has been done for evaluation of patient breathing during the sleep. PROCEDURE: The standard montage for clinical polysomnography included the electroencephalogram, the electrooculogram, the mentalis surface electromyography and Lead II cardiography. The respiratory battery consisted of measurements of nasal/buccal air flow, pressure transducer measurements from nose, thoracic and/or abdominal effort and intercostal surface electromyography. Video monitoring has been done to check for any parasomnia events. Nocturnal oxyhemoglobin saturations were obtained by finger oximetry. Step-lamb titration with positive airway pressure was utilized to control the respiratory events, if necessary. RESULTS: During the diagnostic sleep study sleep efficiency was decreased to 79.6%. Latency to sleep onset was normal 16.0 min. Sleep architecture showed stage NI was short of only 1.4%, Delta sleep was absent 0%, REM sleep was normal 22.1%. Respiratory channel showed 20 obstructive apneas, 0 mixed apneas, 0 central apneas, 121 hypopneas with lowest oxygen level 87%. Total apnea hypopnea index was 21.6 following 4% oxygen desaturation criteria for hypopneas and 26.9 following 3% oxygen desaturation criteria for hypopneas. Heart rate was in the range between 59 and 71, average 65. EMG showed 0 periodic limb movements per hour. IMPRESSIONS: 1. Moderate obstructive sleep apnea hypopnea syndrome. 2. No significant periodic limb movements have been documented. Please see other impressions from consultation PLAN: 1. The patient will have PAP titration for correction of respiratory abnormalities during the sleep. 2. Losing weight program. 3. Sleep hygiene with regular time in bed for at least 7-1/2 hours. 4. No driving if feeling sleepiness. Thank you very much for allowing me to participate in the management of your patient. Sincerely, Stanford Coffey MD, PhD, FAASM. Diplomat of [place] [employer], Sleep Medicine Board by [place] [employer] Associate Professor Of English of [facility] [place] cc: Carmine Adrian DO
== END 2024-12-22 06:00 | disposition home or self-care (01) ==
LOC: 3 N SLEEP 19:36
PROVIDERS: ATTEND Internal Medicine
DX: G47.33 Obstructive sleep apnea (adult) (pediatric) (principal); Z88.2 Allergy status to sulfonamides; Z88.1 Allergy status to other antibiotic agents; Z91.048 Other nonmedicinal substance allergy status
CPT/HCPCS: 95810

== ENCOUNTER → 2025-01-18 | Outpatient (CLI) | payer MEDICARE ==
[2025-01-18 13:25] VITALS: BP 123/76; PULSE 66; RESP 16; TEMP 98.2
--- NOTE | 2025-01-18 14:23 | P.PROGSL ---
Subjective DATE: 01/18/2025 FOLLOW UP VISIT. Patient with obstructive sleep apnea hypopnea syndrome return to sleep center for follow-up visit. Information from previous visit have been reviewed. Patient was not able to use CPAP equipment secondary to sore teeth problems. She opens her mouth, breathe through the mouth and its increase problems related to her teeth. [place] sleepiness scale is 3, which is normal. I checked information from PAP unit. PAP unit pressure 12 cm H2O. Leak is 47 l/m, which is in high range. Apnea Hypopnea Index is 0.7, which is normal. MEDICATIONS have been reviewed, please see below. During physical exam: GENERAL: A pleasant patient without any distress on wheelchair. VITAL SIGNS: Please see below, weight is 270 lbs. HEENT: PERRLA, EOMI.low position of soft palate, Mallapati 3 . NECK: Supple. No JVD. LUNGS: Clear to percussion and to auscultation. Good air exchange. No wheezing or rhonchi. HEART: S1, S2 regular. ABDOMEN: Soft and nontender.[] EXTREMITIES: No clubbing or cyanosis. CHEMISTRY ACCOUNT MANAGER: Awake, alert, and oriented x3. No focal deficit. Impressions: 1. Obstructive sleep apnea-hypopnea syndrome in moderate range apnea hypopnea index 21.6. Patient has some problems with usage of full facemask. 2. History of atrial fibrillation. 3. History of stroke x 2 last episode in 2021. 4. History of scleroderma. 5. Status post bilateral hip replacement. 6. Status post Watchman procedure. 7. Mild obesity. I explained to the patient and family how to adjust heated humidity and change temperature in heated tube. Ramp was adjusted to automatic regimen started from 5 cm of water. Plan: 1. Continue using PAP equipment every night for the whole night. 2. Sleep hygiene with regular time in bed for at least 7.5-8 hours 3. PAP unit should stay lower then position of the head. 4. Advised patient to remove all remaining water from humidifier canister daily and make it dry after each usage. Refill canister with fresh distilled water before each usage. 5. Watching weight. 6. Precautions related to driving. No driving if feel any sleepiness. 7. I will maintain prescription for PAP supplies including mask, tube, filters. 8. Follow up visit in 2 months or earlier if patient has any problems. 9. We gave patient a nasal mask for trial to use with nasal strips. Thank you very much for allowing me to participate in the management of your patient. Stanford Coffey MD, PhD, FAASM. Diplomat of [place] [employer], Sleep Medicine Board by [place] [employer] Hvac Mechanic [facility] [place] cc: Carmine Adrian DO Objective - Vital Signs Vital Signs: Vital Signs Temp 98.2 F 01/18/25 13:24 Pulse 66 01/18/25 13:24 Resp 16 01/18/25 13:24 BP 123/76 01/18/25 13:24 Pulse Ox 96 01/18/25 13:24 FiO2 Intake & Output 01/17/25 01/18/25 01/18/25 18:59 06:59 18:59 Weight 99.79 kg Home Medications: Home Medications Medication Instructions Recorded Confirmed Type Apixaban [Eliquis] 5 mg PO BID 05/04/24 11/02/24 History Aspirin EC [Ecotrin Low Dose] 81 mg PO DAILY 05/04/24 05/04/24 History Atorvastatin [Lipitor] 40 mg PO HS 05/04/24 11/02/24 History Hydroxychloroquine Sulfate 200 mg PO DAILY 05/04/24 11/02/24 History [Plaquenil] Losartan [Cozaar] 50 mg PO DAILY 05/04/24 11/02/24 History Diltiazem Cd [Cardizem CD] 120 mg PO DAILY cap 05/05/24 11/02/24 Rx
== END ==
LOC: 3 N SLEEP 12:56
PROVIDERS: ATTEND Internal Medicine
DX: G47.33 Obstructive sleep apnea (adult) (pediatric) (principal); E66.9 Obesity, unspecified; Z68.36 Body mass index [BMI] 36.0-36.9, adult; Z96.643 Presence of artificial hip joint, bilateral; Z95.818 Presence of other cardiac implants and grafts; Z87.39 Personal history of other diseases of the musculoskeletal system and connective tissue; Z86.73 Personal history of transient ischemic attack (TIA), and cerebral infarction without residual deficits; Z88.1 Allergy status to other antibiotic agents; Z88.2 Allergy status to sulfonamides; Z91.048 Other nonmedicinal substance allergy status
CPT/HCPCS: 99212